=== PATIENT | female | born 1995 | race Two or more races ===

== ENCOUNTER → 2017-05-10 | Outpatient (CLI) | payer OTHER | LOC: FIMAGING 09:22 | PROVIDERS: ATTEND Family Medicine Sports Medicine | DX: R06.02 Shortness of breath (principal); R07.9 Chest pain, unspecified; R55 Syncope and collapse ==

== ENCOUNTER 2017-11-21 17:53 | Observation (INO) | payer OTHER ==
--- NOTE | 2017-11-21 18:12 | CPEKG ---
Heart Rate: 77 RR Interval: 779 P-R Interval: 160 QRSD Interval: 72 QT Interval: 360 QTC Interval: 408 P [place]: 76 QRS [place]: 30 T Wave [place]: 17 EKG Severity - NORMAL ECG - EKG Impression: SINUS RHYTHM EKG Impression: probble pericarditis Electronically Signed By: Beau Aceves 21-Nov-2017 23:54:52
--- NOTE | 2017-11-21 18:46 | EDPHY ---
H & P Time Seen by Provider: 11/21/17 18:45 HPI/ROS: Chief complaint. Chest pain HPI. 22-year-old female with mid chest pain that began about 3 o'clock this afternoon. Spine the sternum. She describes as pressure. No radiation to her back. It is worse with standing up but not necessarily deep breathing or exertion. No fever cough. No unusual leg pain or swelling. No similar symptoms previously. She was seen at work and [place] for this this afternoon and she has an elevated D-dimer. Sent for rule out PE. ROS Constitutional. no fever/chills, no weakness Eyes. no problems with vision ENT. no sore throat, no nasal drainage Cardiovascular. Chest pain Respiratory. no shortness of breath, no cough Abdominal. no abdominal pain, no nausea/vomiting, no diarrhea . no problems urinating MS. no calf pain/swelling, no neck/back pain, no joint pain Skin. no rash Lymph. no swollen glands Neuro. no headache, no dizziness, no difficulty walking or with speech Past Medical/Surgical History: Sickle cell anemia Social History: Single, nonsmoker, no alcohol Smoking Status: Never smoked Physical Exam: General Appearance: Alert well-developed female mild distress vital signs are stable Eyes: Pupils equal and round no pallor or injection. ENT, Mouth: Mucous membranes are moist. Respiratory: There are no retractions, lungs are clear to auscultation. Cardiovascular: Regular rate and rhythm. Gastrointestinal: Abdomen is soft and nontender, no masses, bowel sounds normal. Neurological: Awake and alert, sensory and motor exams grossly normal. Skin: Warm and dry, no rashes. Musculoskeletal: Neck is supple nontender. Tender over the sternum recreating her symptoms with palpation Extremities symmetrical, full range of motion. Psychiatric: Patient is oriented X 3, there is no agitation. Constitutional: Initial Vital Signs Temperature (C) 36.6 C 11/21/17 17:57 Heart Rate 89 11/21/17 17:57 Respiratory Rate 16 11/21/17 17:57 Blood Pressure 105/68 11/21/17 17:57 O2 Sat (%) 98 11/21/17 17:57 O2 Delivery Mode Room Air Allergies/Adverse Reactions: No Known Allergies Allergy (Unverified 11/21/17 18:01) Home Medications: Medication Instructions Recorded NK [No Known Home Meds] 11/21/17 Medical Decision Making - Diagnostics EKG Interpretation: EKG reviewed by me shows normal sinus rhythm normal interval and axis. QRS is normal there is T-wave inversion in lead V3 and ST elevation in leads V4 through 6 as well as lead 1 and aVL. Consistent with early repolarization. Rate is 77 Imaging Results: Imaging Impressions Chest/Thorax CTA 11/21/17 19:20 Impression: 1. No definite pulmonary thromboemboli. 2. No acute pulmonary disease. Findings and recommendations discussed with Emergency Department physician, Beau Aceves M.D., at 2046 hours, on November 21, 2017. Final report concurs with initial preliminary interpretation. A test result has been communicated to a licensed care provider and documented in the [employer] Critical Result system on 11/21/2017 20:46, Message ID [id number]. Procedures: IV normal saline. Labs from work and [place] are reviewed. IV Toradol ED Course/Re-evaluation: On re-evaluation patient is stable. She and I discussed laboratory evaluation and imaging studies. We discussed treatment plan including recommendation for admission. She expresses understanding and agreement I consulted discussed the case with Dr. Kam, cardiology who will see The patient in the morning I consulted and discussed the case with Dr. Welch, hospitalist, who agrees to the admission Differential Diagnosis: Workup included consideration of acute coronary syndrome, pneumonia, pneumothorax, pulmonary embolus. I believe the patient likely has pericarditis with diffuse ST elevation and positive troponin. - Data Points Laboratory Results: Laboratory Results 11/21/17 19:35 11/21/17 11/21/17 11/21/17 19:35 19:35 19:35 Hct 36.0 % L % (38.0-47.0) ESR 9 MM/HR MM/HR (0-20) Troponin I 0.049 ng/mL H ng/mL (0.000-0.034) Lipase 52 IU/L IU/L (23-300) Beta HCG, Qual NEGATIVE Medications Given: Discontinued Medications Sodium Chloride (Ns) 1,000 mls @ 0 mls/hr IV ONCE ONE; Wide Open PRN Reason: Protocol Stop: 11/21/17 19:21 Last Admin: 11/21/17 19:33 Dose: 1,000 mls Ketorolac Tromethamine (Toradol) 30 mg IVP EDNOW ONE Stop: 11/21/17 19:33 Last Admin: 11/21/17 20:01 Dose: Not Given Departure - Departure Disposition: [facility] Acute Clinical Impression: Elevated troponin Pericarditis Qualifiers: Pericarditis type: unspecified type Chronicity: acute Qualified Code(s): I30.9 - Acute pericarditis, unspecified Condition: Fair
[2017-11-21] MEDS ORDERED: NS 1,000 ML IV ONE (19:20)
[2017-11-21] MEDS ORDERED: KETOROLAC 30 MG/1 ML SDV IVP ONE (19:32)
[2017-11-21] MEDS ORDERED: IOPAMIDOL (ISOVUE 370) 100 ML BTL IV ONE ×2 (19:34→20:12)
[2017-11-21] MEDS ORDERED: ONDANSETRON 4 MG/2 ML VIAL IVP PRN (22:30)
[2017-11-21] MEDS ORDERED: HYDROCODONE/APAP 5/325 TAB PO PRN (22:30)
[2017-11-21] MEDS ORDERED: LORazepam 0.5 MG TAB PO PRN (22:30)
[2017-11-21] MEDS ORDERED: ACETAMINOPHEN 325 MG TAB PO PRN (22:30)
[2017-11-21] MEDS ORDERED: NS 1,000 ML IV SCH (22:30)
[2017-11-21] MEDS ORDERED: KETOROLAC 15 MG/1 ML SDV IVP PRN (22:35)
[2017-11-22 01:10] LABS: CREATINE KINASE 243 IU/L (0-156)
--- NOTE | 2017-11-22 04:22 | GHP ---
[f rep st] HISTORY AND PHYSICAL DATE OF ADMISSION: 11/21/2017 SOURCE: Patient provides history, appears reliable. EMR was reviewed and case discussed with [facility] hospitalist. CHIEF COMPLAINT: Chest pain. HISTORY OF PRESENT ILLNESS: A very pleasant 22-year-old female with past medical history significant for is sickle cell anemia without previous history of crisis, who [facility] of chest pain that started at approximately 3 o'clock. The patient reports a subs ternal pressure. It did not radiate. Patient denied any associated shortness of breath, cough, feve rs, chills. Patient noted that the pain was worse with standing, was not exertional. 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 Patient was assessed w ith an EKG, was noted to have some EKG changes, but I do not have details on any of this, and so tera ent was referred to the emergency department for further evaluation and rule out of PE. At time of m y interview, patient is resting quietly in bed, trying to sleep. She denies any further chest pain, which did resolve. No shortness of breath. No lower extremity swelling. No orthopnea or PND. REVIEW OF SYSTEMS: Negative, except as noted above in HPI. ALLERGIES: No known drug allergies. HOME MEDICATIONS: Patient denies. PAST MEDICAL HISTORY: Significant for sickle cell anemia. The patient states that she did have a tr ansfusion in her youth, but is not sure of the details of this, does not think it was exchange. She does have a history of anemia. She denies any hospitalizations for any reason. PAST SURGICAL HISTORY: Patient denies. FAMILY HISTORY: Sister with sickle cell disease as well. SOCIAL HISTORY: Patient is from [place] originally. 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 She does not smoke , drink, or do drugs. CODE STATUS: Full. PHYSICAL EXAMINATION: VITAL SIGNS: Upon arrival to the emergency department, blood pressure 105/68, heart rate is 89, respiratory rate 16, O2 sat 98% on room air with temperature 36.6. Current vital signs: Blood pressure 122/65, heart rate 71, respiratory rate is 15, O2 sat 97% on room air with tem perature 37.1. GENERAL: No acute distress. Pleasant young adult female is lying quietly in bed try ing to sleep, but she awakes easily to name. HEAD: Normocephalic, atraumatic. EYES: Extraocular m uscles are intact. Pupils equal, round, reactive to light bilaterally and symmetric. No scleral ict erus or conjunctival injection. The light does appear to bother patient a little bit, but she denies any photophobia. ENT: Mucous membranes appear moist. Dentition intact. NECK: Supple. Trachea m idline. CV: Regular rate and rhythm. No murmurs, rubs, or gallops appreciated. No chest wall tend erness to palpation. RESPIRATORY: Lungs clear to auscultation bilaterally. No wheezes, rales, or r honchi. Unlabored breathing. ABDOMEN: Positive bowel sounds. Soft, nontender to palpation. No re bound, guarding, or masses appreciated. : No suprapubic tenderness to palpation. No Paul cathet er in place. EXTREMITIES: Patient strength 5/5 in upper and lower extremities while lying in bed. Moves all extremities. NEURO: Grossly nonfocal. No facial drooping. Strength intact in upper and lower extremities as noted above. PSYCH: Affect is slightly flat, but patient is very cooperative a nd pleasant. Thought process, content, and questions are appropriate. LABORATORY DATA: Hematocrit 36.0. ESR 9. CK is 243, CK-MB 1.65, troponin 0.049. Lipase 52. Beta HCG is negative. EKG, reviewed myself, showing normal sinus rhythm in the 70s. Patient with T-wave inversion in lead III only. She does have some subtle ST elevations in V2, 4, 5, 6, lead II, aVL and I. QT is 408, l ikely representing pericarditis. CTA of the chest: Negative for PE. No acute pulmonary disease. ASSESSMENT AND PLAN: A very pleasant 22-year-old female with a previous history of sickle cell disea se, who presents with complaints of sudden onset of chest pain. 1. Chest pain, possibility for acute pericarditis. Patient was offered some Toradol, but this was d eclined. Her pain has since resolved. Will plan to monitor troponins and check and EKG in the [facility] to see if any resolution of her EKG changes. If any further concerns, cardiology evaluation in e morning. They were consulted from the emergency department, recommended monitoring and repeat lab testing. Differential diagnosis including pericarditis versus sickle cell crisis versus effusion all less likely. Patient's symptoms are currently resolved. She has no dyspnea. Will plan to repeat E KG and cardiac enzymes in the morning and ensure patient's chest pain has resolved. Toradol will be available p.r.n., as well as pain medications as appropriate. 2. Sickle cell disease. Monitor H and H. 3. Anemia. Monitor H and H. 4. Fluids/electrolytes/nutrition. IV fluids overnight. Electrolyte monitoring, replacement if need ed. Diet as tolerated. 5. Prophylaxis SCDs. Holding anticoagulation in setting of anemia and sickle cell disease. 6. COR status: Full. DISPOSITION: Patient admitted to observation status on the PCU floor for close cardiac monitoring simran muñiz. /[id number]/MODL
[2017-11-22 04:28] LABS: PLATELET COUNT 221 10^3/uL (150-400)
--- NOTE | 2017-11-22 09:13 | CPEKG ---
Heart Rate: 70 RR Interval: 857 P-R Interval: 192 QRSD Interval: 74 QT Interval: 400 QTC Interval: 432 P [place]: 44 QRS [place]: 35 T Wave [place]: 14 EKG Severity - NORMAL ECG - EKG Impression: SINUS RHYTHM EKG Impression: QUERY PERICARDITIS Electronically Signed By: Bhaskar Ashton 22-Nov-2017 09:31:10
--- NOTE | 2017-11-22 10:15 | PDCARCONS ---
Cardiology Consult Reason for Consult: Chest pain, Pericarditis Chief Complaint: Chest pain with exertion Requesting Physician: Hospitalist, Dr. 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 She has a history of abnormal EKG and Sickle cell trait. Yani was admitted with chest pain that developed while she was playing 1/2 court basketball. At onset, her pain was 10/10 in severity. Her pain improved when bending over. Yani states that she often experiences chest discomfort with exertion, but states this time her pain was more severe. She also states she has chest pain at rest, specifically during long car rides. Her EKG in the hospital showed T wave inversions in V3. This was directly compared to an EKG performed last fall following a near syncopal event as noted below and there was no change. She had an elevated troponin (0.049) and trending down (0.021). Yani has a history of an abnormal EKG after what was described as presyncope while running on the treadmill. At that time she was fully exerting herself. As soon as she finished she "wilted" on the treadmill. She does not think she actually lost consciousness. Her EKG after this event showed T wave inversions in V1 through V3. She had a stress echocardiogram that was normal. Her CT coronary angiography showed normal coronary arteries, no coronary anomalies. Crypt was noted in the interventricular septum. She had a cardiac MRI that was overall normal except for a reported diminished stroke volume. Her echocardiogram was a normal study also with increased volumes typical of athletes and notable for prominent trabeculations and is negative for intracardiac shunting. There was no ventricular hypertrophy or HOCM, and the aortic valve is trileaflet. The ascending aorta is normal in size. History Information - Allergies/Home Medication List Allergies/Adverse Reactions: No Known Allergies Allergy (Unverified 11/21/17 18:01) I have personally reviewed and updated: family history, medical history, social history, surgical history Past Medical History: Sickle cell trait. She had transfusions in her youth, but is unsure of the details. She had a "Sickle cell crisis" in [place] last year, but this seems to be self diagnosed. History of anemia. No history of hospitalization. History of abnormal EKG. - Past Medical History Additional medical history: Sicle cell trait... I PERSONALLY REVIEWED HER HGB ELECTROPHORESIS AND THIS REVEALED A PREDOMINANCE OF HGB A1 AND A SMALL AMOUNT OF HGB A2 (55% AND 4%) RESPECTIVELY. THE REST IS HGB S CONSISTENT WITH SICLE TRAIT THAT SHOULD NOT RESULT IN ABNORMALITIES OF RED CELLS OR SICKLING UNDER NORMAL CIRCUMSTANCES. - Surgical History Reports: no pertinent surgical hx - Family History Additional family history: She has a sister with Sickle cell disease. No family history of sudden cardiac . - Social History Smoking Status: Never smoked Alcohol Use: None Drug Use: None Additional social history: She is from [place] originally and lived in [place] during high school. 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 Cardiac History - Cardiac History Past Cardiac History: OTHER (Abnormal EKG, Chest pain, Syncope. ) Timing/Duration: Changing over time Severity: severe Severity Scale: 10 Location: substernal Activities at Onset: activity, other (Playing basketball) Modifying Factors: improves with: other (Bending over improves her pain) Associated Symptoms: weakness AIYANA Risk Evaluation age greater or equal to 65: no greater or equal to 3 CAD risk factors: no known CAD(stenosis greater or eqaul to 50%): no ASA use in past 7 days: no severe angina(greater or equal to 2 episodes in 24hrs): yes EKG ST changes greater or equal to 0.5mm: no positive cardiac marker: yes Total Score: 2 AIYANA Score: 8.3% risk Physical Exam Physical Exam: Temp Pulse Resp BP Pulse Ox 37.1 C 72 16 106/46 L 96 11/22/17 08:00 11/22/17 08:00 11/22/17 08:00 11/22/17 08:00 11/22/17 08:00 Constitutional: no apparent distress Eyes: PERRL Ears, Nose, Mouth, Throat: moist mucous membranes Cardiovascular: regular rate and rhythym, no murmur, rub, or gallop Respiratory: no respiratory distress Gastrointestinal: soft, non-tender abdomen Skin: warm Musculoskeletal: no muscle tenderness Neurologic: AAOx3 Psychiatric: interacting appropriately, not anxious Lab and Imaging 11/22/17 03:51 11/22/17 03:51 WBC 5.78 10^3/uL (3.80-9.50) 11/22/17 03:51 RBC 3.81 10^6/uL (4.18-5.33) L 11/22/17 03:51 Hgb 11.2 g/dL (12.6-16.3) L 11/22/17 03:51 Hct 32.7 % (38.0-47.0) L 11/22/17 03:51 MCV 85.8 fL (81.5-99.8) 11/22/17 03:51 MCH 29.4 pg (27.9-34.1) 11/22/17 03:51 MCHC 34.3 g/dL (32.4-36.7) 11/22/17 03:51 RDW 11.6 % (11.5-15.2) 11/22/17 03:51 Plt Count 221 10^3/uL (150-400) 11/22/17 03:51 MPV 9.0 fL (8.7-11.7) 11/22/17 03:51 Neut % (Auto) 52.8 % (39.3-74.2) 11/22/17 03:51 Lymph % (Auto) 37.9 % (15.0-45.0) 11/22/17 03:51 [place] % (Auto) 8.0 % (4.5-13.0) 11/22/17 03:51 Eos % (Auto) 0.7 % (0.6-7.6) 11/22/17 03:51 Baso % (Auto) 0.3 % (0.3-1.7) 11/22/17 03:51 Nucleat RBC Rel Count 0.0 % (0.0-0.2) 11/22/17 03:51 Absolute Neuts (auto) 3.05 10^3/uL (1.70-6.50) 11/22/17 03:51 Absolute Lymphs (auto) 2.19 10^3/uL (1.00-3.00) 11/22/17 03:51 Absolute Monos (auto) 0.46 10^3/uL (0.30-0.80) 11/22/17 03:51 Absolute Eos (auto) 0.04 10^3/uL (0.03-0.40) 11/22/17 03:51 Absolute Basos (auto) 0.02 10^3/uL (0.02-0.10) 11/22/17 03:51 Absolute Nucleated RBC 0.00 10^3/uL (0-0.01) 11/22/17 03:51 Immature Gran % 0.3 % (0.0-1.1) 11/22/17 03:51 Immature Gran # 0.02 10^3/uL (0.00-0.10) 11/22/17 03:51 ESR 9 MM/HR (0-20) 11/21/17 19:35 Sodium 140 mEq/L (135-145) 11/22/17 03:51 Potassium 3.5 mEq/L (3.5-5.2) 11/22/17 03:51 Chloride 108 mEq/L (97-110) 11/22/17 03:51 Carbon Dioxide 24 mEq/l (22-31) 11/22/17 03:51 Anion Gap 8 mEq/L (8-16) 11/22/17 03:51 BUN 14 mg/dL (7-23) 11/22/17 03:51 Creatinine 0.7 mg/dL (0.6-1.0) 11/22/17 03:51 Estimated GFR > 60 11/22/17 03:51 Glucose 95 mg/dL (70-100) 11/22/17 03:51 Calcium 9.2 mg/dL (8.5-10.4) 11/22/17 03:51 Magnesium 1.9 mg/dL (1.6-2.3) 11/22/17 03:51 Creatine Kinase 243 IU/L (0-156) H 11/21/17 19:35 CK-MB (CK-2) Fraction 1.65 ng/mL (0.00-4.55) 11/21/17 19:35 CK-MB (CK-2) % 0.7 % (0.0-4.0) 11/21/17 19:35 Creatine Kinase Interp NEGATIVE (NEGATIVE) 11/21/17 19:35 Troponin I 0.021 ng/mL (0.000-0.034) 11/22/17 03:51 Lipase 52 IU/L (23-300) 11/21/17 19:35 Beta HCG, Qual NEGATIVE 11/21/17 19:35 Visualized and Interpreted imaging results: Yes Visualized and Interpreted EKG results: Yes EKG Interpretation: Positive for: T waves inversion (in V3) EKG additional interpertation: She has a history of T wave inversions in V1 and V3. Her EKG today shows normal sinus rhythm with T wave inversions in V3. Telemetry: sinus rhythm no significant tachy or moon dysrhythmia. Echocardiogram: Echocardiogram performed 05/12/17 was a normal study, negative for intracardiac shunting. There was no ventricular hypertrophy, the aortic valve is trileaflet. The ascending aorta is normal in size. Slightly increased volumes and prominent trabeculation and moderator bands in the right ventricle. A/P Assessment: Yani was admitted with acute chest pain that developed while playing 1/2 court basketball. Her chest pain was severe in nature and improved when bending forward. Yani's initial troponin was slightly elevated at 0.049 and is trending down, her last troponin was 0.021. I recommend we repeat her Troponin at 12pm today. (Done and lower.) I will review the CTA of her chest with the radiologist. The patient has already had a significant cardiac workup. Her symptoms are suggestive of pericarditis. Her EKG is abnormal with T wave inversions in V3. There are lateral EKG changes that may be suggestive of pericarditis. I will review the chest CTA with the radiologist. I would like the patient to have a repeat troponin at 12pm today.If necessary the patient should have hemoglobin electrophoresis to identify variant and abnormal hemoglobins. (Reviewed old electrophoresis) Plan: I reviewed the raw data with the radiologist from the patient's prior chest CTA , old cardiac MRI, and last night's chest CTA. There is no PE, aortic dissection or pericardial effusion. These tests were all normal. I looked at her echocardiogram performed today, she does not appear to have any wall motion abnormalities. Her Troponin continues to trend down, her latest troponin is 0.015. Her cardiac workup is normal. Her symptoms are suggestive of pericarditis and I think it is safe for the patient to be discharged home with activity restrictions. I do not recommend any exercise for the next week. She should take 400mg Ibuprofen every 6 to 8 hours as needed for pain. If her symptoms worsen she should call our office at [facility] or go to the Emergency Department. I discussed these findings with the hospitalist, Dr. Sun, who agrees with the plan to discharge the patient home. I spent over an hour coordinating and planning care, reviewing her past medical history and the raw data from her prior imaging studies with a consulting radiologist. 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
[2017-11-22 12:32] VITALS: BP 112/59
--- NOTE | 2017-11-22 13:43 | ASMTCMCOM ---
CM Note CM Note Notes: 11/22/2017 Case Management Note Reviewed pt during multi disciplinary rounds this morning. Pt was admitted for chest pain with possible pericarditis. Pt has history of sickle cell anemia. There are no case management d/c needs identified d/t pt age and activity levels prior to admission. Case Management d/c poc: independent with follow up as directed. Case Management available if needs change. Date Signed: 11/22/2017 01:42 PM Electronically Signed By:Larissa Slade RN
--- NOTE | 2017-11-22 16:52 | ECHO ---
[email or web address] [address] Main: [phone] Fax: [email or web address] Echocardiogram Name: CARLOS KIRKPATRICK MR#: [id number] Study Date: 11/22/2017 Study Time: 01:28 PM Date of : 1995 Age: 22 year(s) Height: 185.4 cm (73 in.) Weight: 67.13 kg (148 lb.) BSA: 1.89 m2 Gender: Female Examination: Echo Indication: Chest Pain Image Quality: Contrast: Requested by: Chloe Welch BP: 112 mmHg/59 mmHg Heart Rate: Rhythm: Indication: Chest Pain Procedure Staff Flower Buncher Or Picker: Jacey Maria [facility] Reading Physician: Bhaskar Ashton MD Requesting Provider: Conclusions: Normal size left ventricle. No LV hypertrophy. Normal global systolic LV function. EF is 75 %. Normal size right ventricle. The left atrium is normal in size. The right atrium is normal in size. Trivial mitral valve regurgitation. The aortic valve is normal in appearance and function. Mild tricuspid regurgitation is present. The pulmonary artery pressure is normal. The pulmonic valve is normal in appearance and function. The aorta is normal. Trivial anterior pericardial effusion. Measurements: Chambers Valvular Assessment AV/MV Valvular Assessment TV/PV Normal Normal Normal Name Value Range Name Value Range Name Value Range Ao Nata (MM): 2.6 cm (2.2 cm-3.7 AV meanP mmHg ( - ) TR Vmax: 2.38 mm/s ( - ) cm) MV E Vmax: 0.94 m/s ( - ) TR PGmax: 23 mmHg ( - ) IVSd (2D): 0.8 cm (0.6 cm-1.1 MV A Vmax: 0.37 m/s ( - ) syst. PAP: 28 mmHg ( - ) cm) MV E/A: 2.54 ( - ) LVDd (2D): 5.1 cm (3.9 cm-5.3 cm) LVDs (2D): 3.2 cm (2.1 cm-4 cm) LVPWd (2D): 0.7 cm ( - ) LVEF (MOD4): 75 % (>=55 %) Patient: CARLOS KIRKPATRICK Study Date: 11/22/2017 Page 1 of 2 01:28 PM Continued Measurements: Chambers Valvular Assessment AV/MV Valvular Assessment TV/PV Name Value Name Value Name Value LADs: 3.3 cm MV E' Septal: 0.12 m/s CVP (est.): 5 mmHg LADs Lon.7 cm MV E/E' Septal: 7.50 LA Area: 16.2 cm2 MV E/E' Lateral: 4.60 Findings: Left Ventricle: Normal size left ventricle. No LV hypertrophy. Normal global systolic LV function. EF is 75 %. No regional wall motion abnormality. Right Ventricle: Normal size right ventricle. Left Atrium: The left atrium is normal in size. Right Atrium: The right atrium is normal in size. Mitral Valve: The mitral valve is normal in appearance and function. Trivial mitral valve regurgitation. Aortic Valve: The aortic valve is normal in appearance and function. Tricuspid Valve: The tricuspid valve is normal in appearance and function. Mild tricuspid regurgitation is present. The pulmonary artery pressure is normal. Pulmonic Valve: The pulmonic valve is normal in appearance and function. Aorta: The aorta is normal. Pericardium: Trivial anterior pericardial effusion. (No Signature Object) Patient: CARLOS KIRKPATRICK Study Date: 11/22/2017 Page 2 of 2 01:28 PM [id number]
--- NOTE | 2017-11-22 17:51 | GDS ---
[f rep st] DISCHARGE SUMMARY DISCHARGE DIAGNOSES: 1. Chest pain with exertion. 2. Pericarditis. 3. History of syncope with exercise. 4. Sickle cell trait. 5. Indeterminate troponin. HISTORY OF PRESENT ILLNESS: A 22-year-old female with history of sickle cell anemia trait, prior syncopal episode with exercise last year, presenting with significant chest pain with exertion. She was playing basketball and developed 10/10 pain that improved with bending over at the waist. She often has experienced chest discomfort with exertion, but this was more severe. She intermittently has chest pain at rest during long car rides. She has a history of an abnormal EKG that was in association with a presyncopal episode on the treadmill. At the time, she was fully exerting herself and wilted over. EKG at that time showed T-wave inversion in V1 and V3. She had a stress echocardiogram that was normal. Her CT coronary angiogram showed normal coronaries and no anomalies. There was a crypt noted in the interventricular septum. She had a cardiac MRI that was normal except for diminished stroke volume. An echo was negative for intracardiac shunting. HOSPITAL COURSE BY PROBLEM: 1. Acute chest pain: Patient was evaluated by Dr. John, who did an extensive review of her prior imaging and testing. Suspect pain is due to pericarditis. She had a CTA that was negative here for PE. Extensive cardiac evaluation including echocardiogram, cardiac MRI did not demonstrate PE, dissection, or pericardial effusion. She does not have any wall motion abnormalities on echo during this stay. Her troponin trended down from 0.49 to 0.015. She will be discharged with activities restrictive of no exercise to the point of increasing her heart rate or making her face red. She should take Advil 400 mg every 6-8 hours for pain. If symptoms progress, she should call [facility] or go to the ER. HB electrophoresis pending to eval for Thalassemia. 2. Pericarditis: Advil PRN 3. Indeterminate troponin: from pericarditis. [employer] PE, echo with no WMA. Normalized on repeat labs. DISPOSITION: Patient is stable for discharge home. NEW MEDICATIONS: Advil 400 mg q.6 hours PRN FOLLOW UP: [facility]. PHYSICAL EXAM: VITAL SIGNS: Temperature 36.8, blood pressure 112/59, heart rate 70s, respirations 16, 95% on room air. GENERAL: Well appearing, sitting up in bed, in no acute distress. HEENT: PERRLA. EOMI. Oropharynx clear. CV : Regular rate and rhythm and rhythm. No murmurs, gallops, or rubs. LUNGS: Clear. No crackles or wheezing. ABDOMEN: Soft, nontender, nondistended. Positive bowel sounds. : No Paul. MUSCULOSKELETAL: 5/5 upper and lower extremity strength. NEUROLOGIC: Cranial nerves 2 through 12 intact. PSYCH: Alert and oriented x3. Time spent on DC >35 min coordinating DC and coordinating plan with Cardiology. Labs pending: Hb electrophoresis. /[id number]/MODL MTDD
== END 2017-11-22 17:47 | disposition home or self-care (01) ==
LOC: INTOOBSV 21:06 → F2W 22:29
PROVIDERS: ADMIT Internal Medicine; ATTEND Internal Medicine
DX: R07.89 Other chest pain (principal); I31.9 Disease of pericardium, unspecified; D57.1 Sickle-cell disease without crisis; R79.89 Other specified abnormal findings of blood chemistry; E86.9 Volume depletion, unspecified
CPT/HCPCS: 71275; 93005; 93306; G0378; J1885; Q9967